=== PATIENT | female | born 1965 | race Caucasian/White ===

== ENCOUNTER 2022-02-26 01:31 | Emergency (ER) | payer OTHER ==
[~2022-02-26 01:31] MED LIST: CYCLOBENZAPRINE10 MG PO; HYDROCODON-ACE1 EAC2 PO; IBUPROFEN800 MG PO; MOBIC15 MG PO
[2022-02-26 01:51] LABS: BASOPHIL 0.4 % (0-2); EOSINOPHIL 1.1 % (0-5); HCT 42.4 % (37.0-47.0); HGB 14.7 g/dl (12.5-16.0); MCH 32.2 pg (25.0-31.0); MCHC 34.7 g/dL (32.0-36.0); MCV 92.8 fL (78.0-100.0); MONOCYTE 5.3 % (0-12); MPV 10.9 fL (6.0-9.5); NEUTROPHIL 60.8 % (41-80); NRBC 0; PLT 221 K/uL (150-400); RBC 4.57 M/uL (4.20-5.40); RDW 13.1 % (11.5-14.0); WBC 11.3 K/uL (4.0-10.5)
[2022-02-26 02:05] LABS: PROTHROMBIN TIME 12.6 SECONDS (11.8-13.4); PTT 28.6 SECONDS (24.4-34.7)
[2022-02-26 02:10] LABS: ALBUMIN 3.7 g/dL (3.4-5.0); BILIRUBIN - TOTAL 0.2 mg/dL (0.2-1.0); BUN/CREAT RATIO (CALC) 27.2 RATIO; CREATININE 0.81 mg/dL (0.51-0.95); GLOBULIN (CALCULATION) 3.5 g/dL; POTASSIUM 3.8 mmol/L (3.5-5.1); TOTAL PROTEIN 7.2 g/dL (6.4-8.2)
[2022-02-26] MEDS ORDERED: LIPITOR40 MG PO (03:34)
[2022-02-26] MEDS ORDERED: ASPIRIN EC81 MG PO (03:34)
[2022-02-26] MEDS ORDERED: HYDROCODON-ACE1 EAC2 PO (14:31)
== END 2022-02-26 04:00 | disposition home or self-care (01) ==
LOC: FER 01:31
PROVIDERS: Internal Medicine
DX: G45.9 Transient cerebral ischemic attack, unspecified (principal); F17.210 Nicotine dependence, cigarettes, uncomplicated; Z88.5 Allergy status to narcotic agent
CPT/HCPCS: 36415; 70450; 80053; 84484; 85025; 85610; 85730; 93005; Q9967